=== PATIENT | female | born 1960 | race American Indian/Alaskan Native ===

== ENCOUNTER 2017-05-02 07:00 | Day surgery (SDC) | payer MEDICAID ==
--- NOTE | 2017-05-02 08:19 | Anesthesia Day of Surgery ---
Anesthesia Day of Surgery - Day of Surgery Patient Examined: Yes Patient H&P Reviewed: Yes Patient is NPO: Yes
--- NOTE | 2017-05-02 08:19 | Anesthesia Consultation ---
Anesthesia Consult and Med Hx Date of service: 05/02/17 - Airway Anesthetic Teeth Evaluation: Good ROM Head & Neck: Adequate Mental/Hyoid Distance: Inadequate Mallampati Class: Class III Intubation Access Assessment: Probably Good - Pulmonary Exam CTA: Yes - Cardiac Exam Cardiac Exam: RRR - Pre-Operative Health Status ASA Pre-Surgery Classification: ASA3 Proposed Anesthetic Plan: MAC - Pulmonary Hx Smoking: No Hx Sleep Apnea: Yes - Cardiovascular System Hx Hypertension: Yes - Central Nervous System Hx Neuromuscular Disorder: No Hx Psychiatric Problems: Yes (ANXIETY) - Gastrointestinal Hx Gastroesophageal Reflux Disease: Yes - Endocrine Hx Renal Disease: No Hx Insulin Dependent Diabetes: No - Hematic Hx Anemia: No Hx Sickle Cell Disease: No - Other Systems Hx Alcohol Use: No Hx Substance Use: No Hx Cancer: No Hx Obesity: Yes (BMI 40)
[2017-05-02] MEDS ORDERED: DIPRIVAN 10 MG/ML IV ONE ×2 (08:27→09:14)
--- NOTE | 2017-05-02 08:45 | Discharge Summary ---
Providers - Providers Attending physician: JOSE CHRISTIANSON Primary care physician: DMITRI SANCHEZ Hospitalization Condition: Good Procedures: egd Hospital course: 56 y.o. F came to endoscopy for EGD for preparation of her upcoming bariatric surgery. She tolerated the procedure well and was discharge home the same day. A biopsy was done at the GE junction as well. Disposition: DC-01 TO HOME OR SELFCARE Core Measure Documentation - Palliative Care Palliative Care/ Comfort Measures: Not Applicable - Core Measures Any of the following diagnoses?: none Exam - Physical Exam Narrative exam: no changes from prior - Constitutional Vitals: Temp Pulse Resp BP Pulse Ox 97.7 F 56 L 18 164/74 99 05/02/17 08:33 05/02/17 08:33 05/02/17 08:33 05/02/17 08:33 05/02/17 08:33 Plan Activity: other (no driving today) Follow up with: DMITRI SANCHEZ MD [Primary Care Provider] - 7 Days
--- NOTE | 2017-05-02 08:45 | Operative Report ---
Operative Report Operative Report: OPERATIVE REPORT - EGD DATE 05/02/17 SURGERY: Upper endoscopy. SURGEON: Dr. Hutchins HORTICULTURAL WORKER: Nuris Reyes DO PRE OP DX: POST OP DX: TYPE OF ANESTHESIA: MAC. ESTIMATED BLOOD LOSS: None. COMPLICATIONS: None. SPECIMENS REMOVED: GE junction biopsy FINDINGS: 1. Small hiatal hernia, irregular GE junction, distal esophagitis 2. Otherwise, normal esophagus, stomach and first portion of duodenum. INDICATIONS:INDICATION FOR PROCEDURE: Patient is a 56-year-old female with a long history of morbid obesity. She is planned to have a weight loss procedure and is here for preoperative planning EGD. PROCEDURE DETAILS: After consent was reviewed, patient was taken back to the operating room where patient was placed in the left lateral decubitus position and a bite block was placed in the mouth. After a time-out was called, MAC anesthesia was initiated. I then passed the endoscope into her oropharynx, into her esophagus, visualized the entire esophagus, which showed distal esophagitis and an irregular GE junction. The GE junction was biopsed. . I then visualized the stomach and the first portion of the duodenum and there were no abnormalities I could clearly visualize. I then retroflexed the scope in the stomach and visualized the hiatus and I could see a small hiatal hernia. I then desufflated the stomach and removed the endoscope. Patient tolerated procedure well and was transferred to recovery room in good and stable condition.
[2017-05-02] MEDS ORDERED: PEPCID IV NR (09:00)
[2017-05-02] MEDS ORDERED: NACL 0.9% 1000 ML 1,000 ML IV SCH (09:00)
[2017-05-02 10:18] VITALS: BP 132/84
--- NOTE | 2017-05-02 12:36 | Post Anesthesia Evaluation ---
- Post Anesthesia Evaluation Patient Participated: Yes Airway Patent: Yes Stable Respiratory Function: Yes Temp > 96.8F: Yes Pain Manageable: Yes Adequeate Hydration: Yes Anesthesia Complications: No
== END 2017-05-02 07:01 | disposition home or self-care (01) ==
LOC: GIO 07:00
PROVIDERS: ATTEND Specialist
DX: K21.0 Gastro-esophageal reflux disease with esophagitis (principal); K44.9 Diaphragmatic hernia without obstruction or gangrene; I10 Essential (primary) hypertension; F41.9 Anxiety disorder, unspecified; E66.01 Morbid (severe) obesity due to excess calories; Z68.41 Body mass index [BMI] 40.0-44.9, adult
CPT/HCPCS: 43239; 88305; J2704; J7030